=== PATIENT | female | born 1980 | race Caucasian/White ===

== ENCOUNTER 2016-12-14 09:04 | Day surgery (SDC) | payer OTHER ==
[2016-12-14] VITALS (12 sets, daily range): BP systolic 113–131; BP diastolic 62–94; PULSE 84–98; RESP 8–18; O2SAT 95–100
[~2016-12-14] VITALS: Ht 172.7 cm; Wt 99.8 kg
[~2016-12-14 09:04] MED LIST: ALBU8.5H2 IN; BECL8.7A6 INHALATION; BUTA1CAP41 PO; CYCL10TA9 PO; HYDR-4003 PO; HYDR25CA PO; LANS30CA14 PO; Lactated Ringer's 1,000 ML IV ONE; Levofloxacin 500 mg/100 mL D5W IV ONE; METH4TAB11 PO; METO-301 PO; MONT10TA23 PO; MULT-908 PO; ONDA8TAB7 PO; PHEN-684 PO; PRAM0.5T3 PO; SERT50TA9 PO; SUMA6PEN9 SQ; VIT1TABL83 PO; ZONI100C6 PO; [UNRECOGNIZED DRUG - CODE] IJ
[2016-12-14] MEDS ORDERED: Ondansetron 2 mg/mL 2 mL Inj ONE (09:05)
[2016-12-14] MEDS ORDERED: fentaNYL-PF 50 mCg/mL 2 mL Inj ONE (09:05)
[2016-12-14] MEDS ORDERED: Dexamethasone 4 mg/mL Inj ONE (09:05)
[2016-12-14] MEDS ORDERED: MetoCLOpramide 5 mg/mL 2 mL Inj ONE (09:05)
[2016-12-14] MEDS ORDERED: Propofol 10,000 mCg/mL 20 mL Inj ONE (09:05)
--- NOTE | 2016-12-14 10:22 | PCM.HPANE ---
Patient Data Surgeon Admitting Provider: Attending Provider:Gaviota Carias MD Primary Care Physician:Terry Dietz DO Other Provider:Pasquale Cole Anesthesia Reason for Visit Retained Foreign Body Of Bladder Ht/WT & BMI Height (Feet): 5 Height (Inches): 8.00 Weight (Kilograms): 99.8 Body Mass Index 33.00 Allergies Coded Allergies: latex (Verified Allergy, Severe, severe hives, 12/13/16) nadolol (Verified Allergy, Severe, SYNCOPE, 12/13/16) sumatriptan (Verified Allergy, Severe, HIVES, H/A, 12/13/16) ketorolac (Verified Allergy, Unknown, Hives, 12/13/16) trospium (Verified Allergy, Unknown, unknown, 12/13/16) Penicillins (Verified Adverse Reaction, Severe, Nausea,Vomiting,TREMORS, ) ampicillin (Verified Adverse Reaction, Severe, dizziness,disorientation, ) cephalexin (Verified Adverse Reaction, Severe, N&V, 12/13/16) metronidazole (Verified Adverse Reaction, Severe, N&V, 12/13/16) Uncoded Allergies: METAL,NICKEL (Adverse Reaction, Unknown, unknown, 12/13/16) Past Anesthesia History Anesthesia History: Denies:: Abnormal Airway, Anesthesia Reactions, Difficult Intubation, Fam Anesthesia Reaction, Fam Malignant Hypertherm, Malignant Hyperthermia Diabetes History Hx Diabetes?: No MRSA MRSA: No Medications Home Meds Incl Beta Johnie: No Reported Medications Beclomethasone Dipropionate (Qvar)8.7 Gm Aer.w.adap1 Puff INHALATION BID #8.7 GM 12/13/16 Vit B Comp/C/FA/Iron/Vit E (Vitamin B Complex Tablet)1 Each Tablet1 Each PO DAILY 12/13/16 Phenazopyridine (Pyridium)200 Mg Hazfbm774 Mg PO TID PRN For Pain Ref 0 12/13/16 Methylprednisolone (MethylprednisoLONE Dose Grzegorz)4 Mg Tab.ds.pk4 Mg PO UD #1 PKG Ref 0 Follow direction on package. 12/13/16 Hydrocodone-Acetaminophen 5-325 mg 1 Each Tablet1 Tablet PO Q6H PRN For Pain Ref 0 12/13/16 Multivits Min/Iron/FA/Herb#186 (Hair, Skin & Nails Caplet)1 Each Tablet1 Each PO DAILY 12/13/16 Butalbital/Acetamin/Caff 50-300-40 mg 1 Each Capsule1-2 Capsule PO Q4H PRN For Pain Ref 0 12/13/16 Ketorolac Tromethamine 15 Mg/1 Ml Cartridge1 Ml IJ Q6H PRN migraine 10/04/16 Sumatriptan Succinate 6 Mg/0.5 Ml Pen.injctr0.5 Ml SQ DIRECTED PRN migraine 10/04/16 Zonisamide 100 Mg [id number] Mg PO BID 10/04/16 Sertraline HCl (Sertraline)50 Mg Dxemzf42 Mg PO DAILY #30 02/28/16 Montelukast 10 Mg Vphxqh90 Mg PO DAILY #30 02/28/16 Ondansetron ODT (Zofran ODT)8 Mg Tablet8 Mg PO Q4H PRN For Nausea 02/28/16 Albuterol HFA (Proair HFA)8.5 Gm Hfa.aer.ad1 Puff IN PRN #8 07/13/[address] (Prevacid)30 Mg Lnodqyx70 Mg PO DAILY Ref 0 06/29/15 Metoclopramide (Reglan)10 Mg Rzzqmp15 Mg PO QID PRN For Nausea Ref 0 07/13/14 Hydroxyzine Pamoate (Vistaril)25 Mg Mdvjzvg17 Mg PO QID PRN For Itching Ref 0 07/13/14 Pramipexole Dihydrochloride (Mirapex)0.5 Mg Tablet1 Mg PO HS 02/08/14 Cyclobenzaprine 10 Mg Tablet5 Mg PO Q 8HRS PRN For Spasm Ref 0 02/08/14 Discontinued Reported Medications Prochlorperazine Maleate (Compazine)5 Mg Tablet5 Mg PO Q6H PRN For Nausea 11/12/16 Temazepam 30 Mg Cap30 Mg PO HS PRN For Insomnia 30 Days Ref 0 06/27/15 Rizatriptan (Maxalt)10 Mg Bptuxu12 Mg PO PRN For Headache 12/31/14 Topiramate (Topamax)100 Mg Cbljqt211 Mg PO QAM 30 Days Ref 0 07/13/14 Fluticasone Propionate (Flovent HFA 110 mcg)12 Gm Aer.w.adap2 Puffs IH BID PRN PRN #12 GM Ref 0 07/13/14 Sucralfate (Carafate)1 Gm Tablet1 Gm PO QID PRN For Epigastric Distress 30 Days Ref 0 02/08/14 Discontinued Scripts Tramadol 50 Mg Lovwks54 Mg PO Q4H PRN For Pain #12 TABLET Ref 0 Prov:Wyatt Harkins MD 02/28/16 History History of ENT Problems?: Yes HEENT History: Positive for:: Dysphagia Sinus Problem (HX CHRONIC SINUSITIS) Denies:: Abnormal Airway Difficult Intubation Hearing Problem Denture Type: None Teeth Condition: Within Normal Limits Hx of Heart Problems?: Yes Cardiovascular History: Positive for:: Edema Denies:: Cardiac Surgery Chest Pain Heart Murmur (ECHOI 11/2006 EF 60-65%) Hypertension Irregular Heartbeat Pacemaker Thrombophlebitis Other Cardiac History: HX OF MICROCYTIC ANEMIA/LYMPHADENOPATHY -REQ IRON & BLOOD TRANSFUSIONS-SEEN IN ONCOLOGY/HEMATOLOGY BY DR. EDUARDO S/P LYMPHADENECTOMY W/ INCONCLUSIVE RESULTS Hx of Respiratory Problem?: Yes Respiratory History: Positive for:: Asthma Dyspnea ([place] (POSS R/T ANXIETY)) Use of Inhalers / NEBS Denies:: COPD Chest Surgery Emphysema Pneumonia Tuberculosis Use of C-PAP Machine (SLEEP STUDY 09/2009 MARBELLA- SNORES) Hx Neurologic Problems?: Yes Neurological History: Positive for:: Headaches Denies:: CVA Other Neurological Pertinent: C/OF RLS Hx of GI Problems?: Yes Gastrointestinal History: Positive for:: Gastroesphageal Reflux Other GI Pertinent History: C/OF NAUSEA Hx of Problems?: Yes Genitourinary History: Positive for:: Kidney Stones (HX KIDNEY STONES) Urinary Tract Infection Other Pertinent History: S/P MULT. CYSTOS C/OF FREQUENCY,NOCTURIA Female Hx: Positive for:: Problems with Breasts? (C/OF RT BREAST PAINJ) Denies:: Currently Endometriosis Pelvic Inflammatory (HX VAGINITIS) Skin History: Denies:: History Skin Disorders? Pressure Ulcers Hx Musculoskeletal Problems?: Yes Musculoskeletal History: Positive for:: Fibromyalgia Systemic Lupus (ACCORDING TO PT) Denies:: Back Injury (C/OF BACK PAIN) Joint Replacement Musculoskeletal Trauma Hx of Psycho/Social Problems?: Yes Psycho Social History: Positive for:: Anxiety Hx Depression (PTSD) Denies:: Bipolar Disorder Hx Surgeries?: Yes (MULT. CYSTOS,MACROPLASTIQUE INJ.,LYMPHADENECTOMY,STAGE I- II INTERSTIM THERA) Hx Any Other Health Problems?: Yes Other History: Positive for:: Hospitalization Thyroid Disease (HX OF THYROID CYST) Denies:: Cancer Endocrine Disease History Blood Transfusions: Denies:: Blood Transfuse Reaction Blood Transfusions Hx Diabetes: No Hx Alcohol Use: Yes ("SOCIAL")Hx [facility] Smoking Status: Never Smoker Have You Smoked inLast 12 mo: No Stop/Bang S-Snoring: Do You Snore Loudly: Yes T-Tired: feel tired, fatigued: Yes O-Obsered: Observed not breath: No P-Blood Pressure: treated: No B- Body Mass Index > 35 kg/m2: No A- Age over 50: No N- Neck Large Circumference: Yes G- Gender Male: No MARBELLA Total Score: 3 Risk Assessment Category Category 1A: Patient has history of documented sleep apnea, and HAS NOT received any narcotic, sedative or anesthesia administration during this stay. Category 1B: Patient has history of documented sleep apnea, and HAS received any narcotic , sedative or anesthesia administration during this stay Category 2: Patient has SUSPECTED Obstructive Sleep Apnea, and HAS received any narcotic , sedative or anesthesia administration during this stay. Category 3: Patient has SUSPECTED Obstructive Sleep Apnea and HAS NOT received narcotic, sedative or anesthesia administration during this stay. Category 4: Outpatient in Procedural Areas with known sleep apnea or who screen positive for High Risk via the STOP/BANG questionnaire. Exam Exam Vital Signs Vital Signs Date Time Temp Pulse Resp B/P Pulse Ox O2 Delivery O2 Flow Rate FiO2 12/14/16 09:48 36.5 86 16 119/79 96 Room Air General Appearance: Alert, Oriented X3, Cooperative, No Acute Distress HEENT/AIRWAY: MP 2 Lungs: Clear to Auscultation, Normal Air Movement Heart: Exam Unremarkable, Regular Rate/Rhythm, No Murmurs/Rubs/Gallops Meds/Labs/Diagnostics Admission Meds Current Medications Lactated Ringer's (Lr) 1,000 ml @ 10 mls/hr Q24H ONCE IV Last administered on 12/14/16t 09:21; Start 12/14/16 at 00:52; Stop 12/15/16 at 00:51 Plan Impression Patient chart reviewed, patient interviewed and anesthestic plan with risks, benefits, and alternatives discussed, and informed consent obtained. ASA Physical Status: ASA3 Severe Disease Anesthetic Plan: GA Bene/Risks/Altern/Consents: Yes HP Complete Prior to Induction: Yes Pedrito Maynard MD Dec 14, 2016 09:58
[2016-12-14] MEDS ORDERED: Lactated Ringer's 1,000 ML IV SCH (10:23)
[2016-12-14] MEDS ORDERED: Lactated Ringer's 500 ML IV PRN (10:23)
[2016-12-14] MEDS ORDERED: Ondansetron 2 mg/mL 2 mL Inj IVPUSH PRN (10:25)
[2016-12-14] MEDS ORDERED: EPHEDrine Sulfate 50 mg/mL Inj IVPUSH PRN (10:25)
[2016-12-14] MEDS ORDERED: Dexamethasone 4 mg/mL Inj IVPUSH PRN (10:25)
[2016-12-14] MEDS ORDERED: Phenylephrine 10,000 mCg/mL Inj IVPUSH PRN (10:25)
[2016-12-14] MEDS ORDERED: HYDROmorphone 1 mg/mL Inj IVPUSH PRN (10:25)
[2016-12-14] MEDS ORDERED: Atropine 0.4 mg/mL Inj IVPUSH PRN (10:25)
[2016-12-14] MEDS ORDERED: Labetalol 5 mg/mL 4 mL Inj IV PRN (10:25)
[2016-12-14] MEDS ORDERED: MetoCLOpramide 5 mg/mL 2 mL Inj IVPUSH PRN (10:25)
[2016-12-14] MEDS ORDERED: Phenazopyridine 97.5 mg Tablet PO PRN (11:25)
[2016-12-14] MEDS ORDERED: HYDROcodone-APAP 5-325 mg Tablet PO PRN (11:25)
[2016-12-14] MEDS ORDERED: Ondansetron 8 mg ODT Tablet PO PRN (11:25)
[2016-12-14] MEDS: fentaNYL-PF 50 mCg/mL 2 mL Inj IVPUSH PRN ×2 (11:37→11:53)
--- NOTE | 2016-12-14 11:37 | PCM.ANEP1 ---
Post Anesthesia Phase 1 PACU Phase 1 Assessment Vital Signs Vital Signs Date Time Temp Pulse Resp B/P Pulse Ox O2 Delivery O2 Flow Rate FiO2 12/14/16 11:31 86 12 117/72 99 Room Air 12/14/16 11:25 89 12 117/68 99 Room Air 12/14/16 11:20 37.2 88 11 131/85 99 Room Air 12/14/16 09:48 36.5 86 16 119/79 96 Room Air Anesthetic Administered: GA Level of Alertness: Awake, talking CIFUENTES's with Equal Strength: Yes Pain: No Nausea or Vomiting: No Cardiovascular Function and Hy: Yes Oxygen Delivery: Room Air Lungs: Clear to Auscultation, Normal Air Movement Dermatome Level: Full Sensation Complications: No Pedrito Maynard MD Dec 14, 2016 11:37
--- NOTE | 2016-12-15 13:43 | OP ---
[address] [address] OPERATIVE REPORT PATIENT: AFSHAN RICHARDS : 1980 MR#: [id number] ADMIT: 12/14/2016 JOB ID: [id number] DATE OF SURGERY: 12/14/2016 PROCEDURE NAME: Cystoscopy with removal of foreign body. SURGEON: Gaviota Carias MD. ANESTHESIA: General. PREOPERATIVE DIAGNOSIS(ES): Bladder calculus adherent to foreign body. POSTOPERATIVE DIAGNOSIS(ES): Bladder calculus adherent to foreign body. INDICATIONS: This patient is a 36-year-old woman with a longstanding history of multiple medical problems, including urinary problems that have been treated in the past with Macroplastique x2 for her stress urinary incontinence; also, an InterStim, which has worked well for her urgency, frequency, urge incontinence. Presenting with increasing lower urinary tract symptoms. Evaluations initially showed a calcification felt to be a recently passed ureteral calculus. However, interval study at a later date revealed this calculus to still be present. At cystoscopy, it was found to be a calculus adherent to likely exposed material from her bulking injection and she was set up for cystoscopic removal of calculus. PROCEDURE IN DETAIL: After appropriate informed consent was obtained, patient brought to the operating room. She received IV antibiotics prior to onset of procedure. SCDs were placed. Adequate general anesthesia induced. She was carefully placed in the dorsal lithotomy position. All pressure points carefully padded. Cleaned, prepped, and draped in the usual sterile fashion. Rigid scope was introduced in the bladder. The calculus area itself was easily visible. There was a small area of evident exposed prosthetic material with calculus adherent to it. We needed the resectoscope using the loop without cutting function to remove the calculus. There was still some exposed material. We used a small swipe with cutting on to remove this. Hemostasis achieved with electrocautery. The patient tolerated the procedure well. Gutierrez catheter was placed. She was awakened and taken in stable condition to the postanesthesia care unit.
[2017-01-03] MEDS ORDERED: ROPI0.252 PO (14:54)
== END 2016-12-14 23:59 | disposition home or self-care (01) ==
LOC: SAS 09:04
PROVIDERS: ATTEND Urology
DX: N21.0 Calculus in bladder (principal); T19.1XXA Foreign body in bladder, initial encounter; N39.46 Mixed incontinence; R35.0 Frequency of micturition; R13.10 Dysphagia, unspecified; J45.909 Unspecified asthma, uncomplicated; K21.9 Gastro-esophageal reflux disease without esophagitis; M79.7 Fibromyalgia; F41.9 Anxiety disorder, unspecified; F43.10 Post-traumatic stress disorder, unspecified; F12.90 Cannabis use, unspecified, uncomplicated; Z96.0 Presence of urogenital implants; Z87.442 Personal history of urinary calculi
CPT/HCPCS: 52310; J1100; J1885; J2405; J2765; J3010; J7120

== ENCOUNTER 2016-12-14 18:57 | Emergency (ER) | payer OTHER ==
[~2016-12-14] VITALS: Ht 172.7 cm; Wt 100.0 kg
[~2016-12-14 18:57] MED LIST changes: -Lactated Ringer's 1,000 ML IV ONE; -Levofloxacin 500 mg/100 mL D5W IV ONE
[2016-12-14 19:00] VITALS: BP 134/92; PULSE 103; RESP 16; O2SAT 96
[2016-12-14] MEDS ORDERED: 0.9% Sodium Chloride 1,000 ML IV ONE (19:45)
--- NOTE | 2016-12-14 19:55 | ED.REPORT ---
HPI- Female Date of Service Dec 14, 2016 ED Provider: Jacky Goode DO Joellen Russell is a 36-year-old woman who underwent urinary tract operation earlier this afternoon for 8 mm stone removal and "scraping scar tissue from my bladder " she had a urinary catheter placed following surgery and was given the instructions that if there was leakage from her urethra around her Santacruz tube for her to come to the emergency department. She noticed this after returning home, has gone through 2 sets of underwear and pants, she has not worn a pad. She denies any worsening pain since her operation. She is on Pyridium and is unable to tell if her urine is bloody or orange. She says she has felt a little warm, no chest pain, no shortness of breath, no lightheadedness or dizziness, it is difficult for her to ambulate secondary to pain in her pelvis. She is not passing any gas or had a bowel movement. Nursing Notes Stated Complaint: POST OP ISSUE Chief Complaint: Female Abdominal Pain Nursing Notes Reviewed: Yes Allergies: Coded Allergies: latex (Verified Allergy, Severe, severe hives, 12/14/16) nadolol (Verified Allergy, Severe, SYNCOPE, 12/14/16) trospium (Verified Allergy, Unknown, unknown, 12/14/16) Penicillins (Verified Adverse Reaction, Severe, Nausea,Vomiting,TREMORS, ) ampicillin (Verified Adverse Reaction, Severe, dizziness,disorientation, ) cephalexin (Verified Adverse Reaction, Severe, N&V, 12/14/16) metronidazole (Verified Adverse Reaction, Severe, N&V, 12/14/16) Uncoded Allergies: METAL,NICKEL (Adverse Reaction, Unknown, unknown, 12/13/16) Scheduled Albuterol HFA (Proair HFA) 8.5 Gm Hfa.aer.ad 1 PUFF IN PRN Beclomethasone Dipropionate (Qvar) 8.7 Gm Aer.w.adap 1 PUFF INHALATION BID Lansoprazole DR (Prevacid) 30 Mg Capsule 30 MG PO DAILY Methylprednisolone (MethylprednisoLONE Dose Grzegorz) 4 Mg Tab.ds.pk 4 MG PO UD Follow direction on package. Montelukast (Montelukast) 10 Mg Tablet 10 MG PO DAILY Multivits Min/Iron/FA/Herb#186 (Hair, Skin & Nails Caplet) 1 Each Tablet 1 EACH PO DAILY Pramipexole Dihydrochloride (Mirapex) 0.5 Mg Tablet 1 MG PO HS Sertraline HCl (Sertraline) 50 Mg Tablet 50 MG PO DAILY Vit B Comp/C/FA/Iron/Vit E (Vitamin B Complex Tablet) 1 Each Tablet 1 EACH PO DAILY Zonisamide (Zonisamide) 100 Mg Capsule 100 MG PO BID Scheduled PRN Butalbital/Acetamin/Caff 50-300-40 mg (Butalbital/Acetamin/Caff 50-300-40 mg) 1 Each Capsule 1-2 CAPSULE PO Q4H PRN PRN For Pain Cyclobenzaprine (Cyclobenzaprine) 10 Mg Tablet 5 MG PO Q 8HRS PRN PRN For Spasm Hydrocodone-Acetaminophen 5-325 mg (Hydrocodone-Acetaminophen 5-325 mg) 1 Each Tablet 1 TABLET PO Q6H PRN PRN For Pain Hydroxyzine Pamoate (Vistaril) 25 Mg Capsule 25 MG PO QID PRN PRN For Itching Ketorolac Tromethamine (Ketorolac Tromethamine) 15 Mg/1 Ml Cartridge 1 ML IJ Q6H PRN PRN migraine Metoclopramide (Reglan) 10 Mg Tablet 10 MG PO QID PRN PRN For Nausea Ondansetron ODT (Zofran ODT) 8 Mg Tablet 8 MG PO Q4H PRN PRN For Nausea Phenazopyridine (Pyridium) 200 Mg Tablet 200 MG PO TID PRN PRN For Pain Sumatriptan Succinate (Sumatriptan Succinate) 6 Mg/0.5 Ml Pen.injctr 0.5 ML SQ DIRECTED PRN PRN migraine General Time Seen by MD: 19:11 Chief Complaint Other (Leaking santacruz catheter.) Hx Obtained From: Patient Sudden in Onset?: Yes Similar Sx Previous: No Past Medical History Past Medical History GERD Migraines Kidney stones Ovarian cyst Iron and blood transfusions "Lupus" Reports: Asthma Past Surgical History lymphadenectomy: R axilla and L groin with inconclusive results Cystoscopy with removal of foreign body 12/14/2016 Family History Reviewed, no relevant findings Smoking History Never Smoker Social History Alcohol Use: "Social" Drug Use: THC (medical, for migraines) 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 Physical Exam General: Sitting in wheelchair, no apparent distress. HEENT: Normocephalic, atraumatic, EOMI grossly, Cardiovascular: Regular rate and rhythm, no clicks murmurs rubs, peripheral pulses 2/4 equal bilaterally Pulmonary: Clear to auscultation bilaterally, no W/R/R. Abdominal: Soft to palpation, Negative rebound. : Santacruz catheter in place, draining orange fluid. No suprapubic tenderness, no distention appreciated on palpation Extremities: No edema appreciated. No tenderness, asymmetry. There is a Santacruz catheter bag secured to right lower extremity Neuro: Neurologically grossly intact, strength is equal bilaterally upper and lower extremities. MSK: Gait antalgic, able to move extremities on their own volition, strength 5 out of 5 equal bilaterally to upper and lower extremities. Initial Vital Signs Vital Signs (First) Date Time Temp Pulse Resp B/P Pulse Ox O2 Delivery O2 Flow Rate FiO2 12/14/16 19:00 36.1 103 16 134/92 96 Room Air Initial VS: Reviewed Interpretation & Diagnostics Lab Results Interpretation Test 12/14/16 20:15 Hold Purple Top Tube Received (Received) Hold Blue Top Tube Received (Received) Hold [place] Top Tube Received (Received) Hold [place] Top Tube Received (Received) US Focused non-OB Pelvis Unable to appreciate bladder on bedside ultrasound. Exam Performed by: ED physician, ED resident Exam Interpreted by: ED physician, ED resident Re-Eval/Medical Decision Med Decision/Clinical Course Patient was evaluated, did not appear to have a distended bladder. Patient was given IV fluids as well as oral fluids, reevaluated sometime later and found that she indeed has a patent Santacruz catheter. She ambulated around the department, and noticed that she continue to have minor leakage that was able to be wiped up with a paper towel. Shared decision making was performed with the patient regarding replacement of her current Santacruz catheter with one of the same size, most likely causing similar problems. She is also given the option of having a larger one placed which may distend the urethra, causing same problems on the road or worsening in the future. Ultimately patient states that she was content with waiting until her appointment on Saturday to have her Santacruz catheter removed, and agreed to wear panty liners, incontinence pad, and other feminine products. She was given warning that moisture to the area can put her at risk of rash, or yeast infections, and again emphasized to use proper feminine hygiene. Red flag symptoms were discussed with strict return protocol, patient stated understanding and agreement. Counseled Regarding: Diagnosis, Need for follow-up, When/why to return to ED Discharge & Departure Impression: Primary Impression: Leakage from urinary catheter Encounter type: initial encounter Qualified Code: T83.038A - Leakage of other urinary catheter, initial encounter Disposition: Home Discharge Condition All VS Reviewed: Yes Condition: Stable Patient Instructions: How to Care for Your Santacruz Catheter (DC) Additional Instructions: Thank you for entrusting us with your care. Today we evaluated your urinary catheter, found that it was not clogged. There is residual leakage from your urethra, however as we discussed we do not feel that replacing the catheter with the same size would be of benefit, and to move into a larger size may distend your urethra and you may have the same problem or even worse further in the future. We recommend that you wear incontinence pads, keep the areas dry as possible, watch out for signs of a yeast infection, use feminine care appropriately. If you develop a fever, chills, start to have blood leaking from around your Santacruz catheter or becomes foul-smelling with purulent discharge, please return to the emergency department. Please follow-up with urology at your scheduled appointment on Saturday to have Santacruz catheter removed. Referrals: Terry Dietz DO (PCP) Attending Statement I agree with the note. I performed a physical examination today history. I think the Santacruz is draining spontaneously. There is a small amount of leakage which. This does not seem to be a problem. I recommended she talks over the urologist tomorrow. copies to: Terry Dietz Noah M DO Dec 14, 2016 19:55 Jacky Goode DO Dec 15, 2016 00:57
[2016-12-14] MEDS ORDERED: Ondansetron 2 mg/mL 2 mL Inj IVPUSH PRN (20:30)
[2016-12-14 22:44] VITALS: BP 142/99; PULSE 91; RESP 16; O2SAT 96
[2016-12-14 22:46] VITALS: BP 134/92; PULSE 103; RESP 16; O2SAT 96
[2017-01-03] MEDS ORDERED: ROPI0.252 PO (14:54)
== END 2016-12-14 22:45 | disposition home or self-care (01) ==
LOC: SED 18:57
DX: T83.031A Leakage of indwelling urethral catheter, initial encounter (principal); Y84.6 Urinary catheterization as the cause of abnormal reaction of the patient, or of later complication, without mention of misadventure at the time of the procedure; Y93.89 Activity, other specified; Y92.89 Other specified places as the place of occurrence of the external cause; Y99.8 Other external cause status; J45.909 Unspecified asthma, uncomplicated; K21.9 Gastro-esophageal reflux disease without esophagitis; Z98.890 Other specified postprocedural states; Z88.0 Allergy status to penicillin; Z88.1 Allergy status to other antibiotic agents; Z88.8 Allergy status to other drugs, medicaments and biological substances; Z91.040 Latex allergy status
CPT/HCPCS: 96361; 96374; 99284; J2405; J7030

== ENCOUNTER 2016-12-17 15:38 | Emergency (ER) | payer OTHER ==
[~2016-12-17] VITALS: Ht 172.7 cm; Wt 110.0 kg
[2016-12-17 15:42] VITALS: BP 120/80; PULSE 104; RESP 16; O2SAT 92
[2016-12-17 16:10] LABS: APPEARANCE,URINE HAZY (CLEAR,HAZY); COLOR,URINE DARK YELLOW (YELLOW); OCCULT BLOOD,URINE LARGE (NEGATIVE); UROBILINOGEN,URINE NORMAL (NORMAL)
--- NOTE | 2016-12-17 18:24 | ED.REPORT ---
HPI- Female Date of Service Dec 17, 2016 ED Provider: Julito Gilbert DO A 36 year old female with a medical history including Lupus, migraines, nephrolithiasis, and ovarian cyst s/p recent cystoscopy with removal of foreign body from bladder (12/14/16) presents to the ED with hematuria in her Gutierrez catheter onset today. Associated symptoms include dysuria, low-grade fever ( 100.2 at home), and urine leaking around the catheter. The patient denies other symptoms. She was seen in the ED the evening of her recent surgery with leaking around her Gutierrez catheter. The catheter is scheduled to come out tomorrow. Nursing Notes Stated Complaint: BLOOD IN URINE Chief Complaint: Female Abdominal Pain Nursing Notes Reviewed: Yes Allergies: Coded Allergies: latex (Verified Allergy, Severe, severe hives, 12/14/16) nadolol (Verified Allergy, Severe, SYNCOPE, 12/14/16) trospium (Verified Allergy, Unknown, unknown, 12/14/16) Penicillins (Verified Adverse Reaction, Severe, Nausea,Vomiting,TREMORS, ) ampicillin (Verified Adverse Reaction, Severe, dizziness,disorientation, ) cephalexin (Verified Adverse Reaction, Severe, N&V, 12/14/16) metronidazole (Verified Adverse Reaction, Severe, N&V, 12/14/16) Uncoded Allergies: METAL,NICKEL (Adverse Reaction, Unknown, unknown, 12/13/16) Scheduled Albuterol HFA (Proair HFA) 8.5 Gm Hfa.aer.ad 1 PUFF IN PRN Beclomethasone Dipropionate (Qvar) 8.7 Gm Aer.w.adap 1 PUFF INHALATION BID Lansoprazole DR (Prevacid) 30 Mg Capsule 30 MG PO DAILY Methylprednisolone (MethylprednisoLONE Dose Grzegorz) 4 Mg Tab.ds.pk 4 MG PO UD Follow direction on package. Montelukast (Montelukast) 10 Mg Tablet 10 MG PO DAILY Multivits Min/Iron/FA/Herb#186 (Hair, Skin & Nails Caplet) 1 Each Tablet 1 EACH PO DAILY Pramipexole Dihydrochloride (Mirapex) 0.5 Mg Tablet 1 MG PO HS Sertraline HCl (Sertraline) 50 Mg Tablet 50 MG PO DAILY Vit B Comp/C/FA/Iron/Vit E (Vitamin B Complex Tablet) 1 Each Tablet 1 EACH PO DAILY Zonisamide (Zonisamide) 100 Mg Capsule 100 MG PO BID Scheduled PRN Butalbital/Acetamin/Caff 50-300-40 mg (Butalbital/Acetamin/Caff 50-300-40 mg) 1 Each Capsule 1-2 CAPSULE PO Q4H PRN PRN For Pain Cyclobenzaprine (Cyclobenzaprine) 10 Mg Tablet 5 MG PO Q 8HRS PRN PRN For Spasm Hydrocodone-Acetaminophen 5-325 mg (Hydrocodone-Acetaminophen 5-325 mg) 1 Each Tablet 1 TABLET PO Q6H PRN PRN For Pain Hydroxyzine Pamoate (Vistaril) 25 Mg Capsule 25 MG PO QID PRN PRN For Itching Ketorolac Tromethamine (Ketorolac Tromethamine) 15 Mg/1 Ml Cartridge 1 ML IJ Q6H PRN PRN migraine Metoclopramide (Reglan) 10 Mg Tablet 10 MG PO QID PRN PRN For Nausea Ondansetron ODT (Zofran ODT) 8 Mg Tablet 8 MG PO Q4H PRN PRN For Nausea Phenazopyridine (Pyridium) 200 Mg Tablet 200 MG PO TID PRN PRN For Pain Sumatriptan Succinate (Sumatriptan Succinate) 6 Mg/0.5 Ml Pen.injctr 0.5 ML SQ DIRECTED PRN PRN migraine General Time Seen by MD: 18:06 Chief Complaint Blood in urine Hx Obtained From: Patient Arrived By: Walk-in Sudden in Onset?: Yes Onset Occurred: 5 - 8 hours ago Symptom Duration: Since onset Severity: Current: No pain currently Severity: Maximum: No pain Pertinent Negative: Relieved by nothing Related History: Reports: Abdominal surgery Recent Healthcare: Recent doctor visit, Previous surgery Past Medical History Past Medical History GERD Migraines Kidney stones Ovarian cyst Iron and blood transfusions "Lupus" Reports: Asthma Past Surgical History lymphadenectomy: R axilla and L groin with inconclusive results Cystoscopy with removal of foreign body 12/14/2016 Family History Reviewed, no relevant findings Smoking History Never Smoker Social History Alcohol Use: "Social" Drug Use: THC 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 Respiratory: Denies: Non-productive cough, Shortness of breath Physical Exam Initial Vital Signs Vital Signs (First) Date Time Temp Pulse Resp B/P Pulse Ox O2 Delivery O2 Flow Rate FiO2 12/17/16 15:42 36.4 104 16 120/80 92 Room Air Initial VS: Reviewed Head / Eyes: Atraumatic, Normocephalic ENT: Conjunctiva normal, No scleral icterus Neck: Supple, Full range of motion Skin: Warm, Dry, No cyanosis Neurologic: Alert, Oriented, Nonfocal Psychiatric: Mood/affect normal, Behavior normal, Normal thought content Female Genitourinary: Technology Adoption Manager present, Atraumatic Gutierrez catheter in place Yellow urine present Abdomen: Soft, No guarding, No rebound Tenderness/Guarding/Rebound: Positive: Tender suprapubic (Mild) Interpretation & Diagnostics Lab Results Interpretation Test 12/17/16 15:54 Urine Color Dark yellow (YELLOW) Urine Appearance Hazy (CLEAR,HAZY) Urine pH 7.0 (5.0-8.0) Urine Specific [place] 1.016 (1.003-1.035) Urine Protein 30mg/dL (NEG,TRACE) Urine Glucose (UA) Negativemg/dL (NEGATIVE) Urine Ketones Negativemg/dL (NEGATIVE) Urine Occult Blood Large (NEGATIVE) Urine Nitrite Negative (NEGATIVE) Urine Bilirubin Negative (NEGATIVE) Urine Urobilinogen Normalmg/dL (NORMAL) Urine Leukocyte Esterase Negative (NEGATIVE) Urine RBC >50/hpf (0-2) Urine WBC 0-5/hpf (0-5) Urine Epithelial Cells Few/hpf (NONE-MOD) Urine Crystals None seen (NONE SEEN) Urine Bacteria Few/hpf (NONE-FEW) Urine Hyaline Casts None/lpf (NONE) Urine Granular Casts None seen (NONE SEEN) Urine Waxy Casts None seen (NONE SEEN) Urine Red Blood Cell Casts None seen (NONE SEEN) Urine White Blood Cell Casts None seen (NONE SEEN) Urine Mucus None seen (None Seen) Urine Trichomonas None seen (NONE SEEN) Urine Yeast None (NONE SEEN) Urinalysis Comment None Urine Culture Reflexed Not indicated Re-Eval/Medical Decision Source of Hx: Old records Re-Evaluation/Progress : Time of Eval: 18:31 Patient Status: Condition improved Re-Evaluation/Progress Note: Discussed with patient lab results, diagnosis, and plan for discharge. Follow-up and return to the ER instructions given. Patient agrees with plan for care and all questions were addressed. Counseled Regarding: Diagnosis, Lab results, Need for follow-up, When/why to return to ED Discharge & Departure Impression: Primary Impression: Leakage from urinary catheter Encounter type: subsequent encounter Qualified Code: T83.038D - Leakage of other urinary catheter, subsequent encounter Disposition: Home Discharge Condition All VS Reviewed: Yes Condition: Improved Additional Instructions: Call Dr. Carias in the morning for repeat evaluation and discussion about your ongoing pain meds. Your pain will most likely be better once the catheter is removed, I suggest that you try your normal dose of pain medication overnight. Treatment ER for high fever, vomiting, inability to urinate or other concerns. Referrals: Terry Dietz DO (PCP) Gaviota Carias MD Attestation Portions of this note were transcribed by Breanna Bermudez. I, Dr. Gilbert, personally performed the history, physical exam, and medical decision-making; I reviewed and confirmed the accuracy of the information in the transcribed note. Signed by: Fahad Hidalgo, 12/17/2016, 18:55 copies to: Gaviota Carias MD; Terry Dietz Timothy S DO Dec 17, 2016 18:24 BREANNA BERMUDEZ Dec 17, 2016 18:34
[2016-12-17 18:52] VITALS: BP 123/74; PULSE 90; O2SAT 100
[2017-01-03] MEDS ORDERED: ROPI0.252 PO (14:54)
== END 2016-12-17 18:53 | disposition home or self-care (01) ==
LOC: SED 15:38
DX: T83.038A Leakage of other urinary catheter, initial encounter (principal); Y84.6 Urinary catheterization as the cause of abnormal reaction of the patient, or of later complication, without mention of misadventure at the time of the procedure; Y93.89 Activity, other specified; Y99.8 Other external cause status; Y92.9 Unspecified place or not applicable; M32.9 Systemic lupus erythematosus, unspecified; K21.9 Gastro-esophageal reflux disease without esophagitis; J45.909 Unspecified asthma, uncomplicated; F12.10 Cannabis abuse, uncomplicated; Z98.890 Other specified postprocedural states; Z79.51 Long term (current) use of inhaled steroids; Z79.52 Long term (current) use of systemic steroids; Z88.1 Allergy status to other antibiotic agents; Z88.8 Allergy status to other drugs, medicaments and biological substances; Z88.0 Allergy status to penicillin

== ENCOUNTER 2017-02-21 19:57 | Emergency (ER) | payer OTHER ==
[~2017-02-21] VITALS: Ht 172.7 cm; Wt 100.0 kg
[~2017-02-21 19:57] MED LIST changes: +ROPI0.252 PO
[2017-02-21 20:27] VITALS: BP 119/84; PULSE 99; RESP 18; O2SAT 100
--- NOTE | 2017-02-21 21:24 | ED.REPORT ---
HPI-Extremity Problem Upper Date of Service Feb 21, 2017 ED Provider: Dr. Quinteros 36 y/o female with a hx of Lupus, migraines, nephrolithiasis presents to the ED complaining of left arm swelling, onset today. The pt had a CT- aortic arch- angiogram with IV contrast earlier today, which got infiltrated during the procedure. Since then, the pt has been experiencing worsening swelling, left arm pain and discoloration. She is unable to straighten her arm due to the pain. The pt reports feeling hot earlier but denies fever. Her last menstrual period was two weeks ago. The pt took an Ibuprofen and a Tylenol for pain which has not helped. Nursing Notes Stated Complaint: SWOLLEN LEFT ARM FROM IV Chief Complaint: Extremity Trauma Nursing Notes Reviewed: Yes Allergies: Coded Allergies: latex (Verified Allergy, Severe, severe hives, 12/14/16) nadolol (Verified Allergy, Severe, SYNCOPE, 12/14/16) bupropion (Verified Allergy, Intermediate, Anger psychosis, 02/21/17) trospium (Verified Allergy, Unknown, unknown, 12/14/16) Penicillins (Verified Adverse Reaction, Severe, Nausea,Vomiting,TREMORS, ) ampicillin (Verified Adverse Reaction, Severe, dizziness,disorientation, ) cephalexin (Verified Adverse Reaction, Severe, N&V, 12/14/16) metronidazole (Verified Adverse Reaction, Severe, N&V, 12/14/16) Uncoded Allergies: METAL,NICKEL (Adverse Reaction, Unknown, unknown, 12/13/16) Scheduled Albuterol HFA (Proair HFA) 8.5 Gm Hfa.aer.ad 1 PUFF IN PRN Beclomethasone Dipropionate (Qvar) 8.7 Gm Aer.w.adap 1 PUFF INHALATION BID Lansoprazole DR (Prevacid) 30 Mg Capsule 30 MG PO DAILY Methylprednisolone (MethylprednisoLONE Dose Grzegorz) 4 Mg Tab.ds.pk 4 MG PO UD Follow direction on package. Montelukast (Montelukast) 10 Mg Tablet 10 MG PO DAILY Multivits Min/Iron/FA/Herb#186 (Hair, Skin & Nails Caplet) 1 Each Tablet 1 EACH PO DAILY Pramipexole Dihydrochloride (Mirapex) 0.5 Mg Tablet 1 MG PO HS Ropinirole (Ropinirole) 0.25 Mg Tablet 4 TAB PO 1-3h Sertraline HCl (Sertraline) 50 Mg Tablet 50 MG PO DAILY Vit B Comp/C/FA/Iron/Vit E (Vitamin B Complex Tablet) 1 Each Tablet 1 EACH PO DAILY Zonisamide (Zonisamide) 100 Mg Capsule 100 MG PO BID Scheduled PRN Butalbital/Acetamin/Caff 50-300-40 mg (Butalbital/Acetamin/Caff 50-300-40 mg) 1 Each Capsule 1-2 CAPSULE PO Q4H PRN PRN For Pain Cyclobenzaprine (Cyclobenzaprine) 10 Mg Tablet 5 MG PO Q 8HRS PRN PRN For Spasm Hydrocodone-Acetaminophen 5-325 mg (Hydrocodone-Acetaminophen 5-325 mg) 1 Each Tablet 1 TABLET PO Q6H PRN PRN For Pain Hydroxyzine Pamoate (Vistaril) 25 Mg Capsule 25 MG PO QID PRN PRN For Itching Ketorolac Tromethamine (Ketorolac Tromethamine) 15 Mg/1 Ml Cartridge 1 ML IJ Q6H PRN PRN migraine Metoclopramide (Reglan) 10 Mg Tablet 10 MG PO QID PRN PRN For Nausea Ondansetron ODT (Zofran ODT) 8 Mg Tablet 8 MG PO Q4H PRN PRN For Nausea Phenazopyridine (Pyridium) 200 Mg Tablet 200 MG PO TID PRN PRN For Pain Sumatriptan Succinate (Sumatriptan Succinate) 6 Mg/0.5 Ml Pen.injctr 0.5 ML SQ DIRECTED PRN PRN migraine General Time Seen by MD: 21:24 Chief Complaint Other (left arm swelling) Hx Obtained From: Patient Arrived By: Walk-in Onset Occurred: 1 - 4 hours ago Symptom Duration: Since onset Location: : Arm left Quality: Painful Severity: Current: Moderate Severity: Maximum: Moderate Recent Healthcare: Recent doctor visit Similar Sx Previous: No Past Medical History Past Medical History GERD Migraines Kidney stones Ovarian cyst Iron and blood transfusions "Lupus" Reports: Asthma Past Surgical History lymphadenectomy: R axilla and L groin with inconclusive results Cystoscopy with removal of foreign body 12/14/2016 Family History Reviewed, no relevant findings Smoking History Never Smoker Social History Alcohol Use: "Social" Drug Use: THC 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 Physical Exam Initial Vital Signs Vital Signs (First) Date Time Temp Pulse Resp B/P Pulse Ox O2 Delivery O2 Flow Rate FiO2 02/21/17 20:27 37.1 99 18 119/84 100 Room Air Initial VS: Reviewed, Vital signs normal Head / Eyes: Atraumatic, Normocephalic Neck: Supple, Non-tender, Full range of motion Respiratory: Breath sounds normal, Clear to auscultation, No respiratory distress Cardiovascular: Regular rate & rhythm, Heart sounds normal, Intact distal pulses Abdomen / GI: Soft, Non-tender Lower Extremities: Vascular intact, Neuro intact, No swelling, No tenderness Neurologic: Alert, Oriented, Nonfocal General/Constitutional: Awake, Alert, Cooperative Upper Extremity / MS: Atraumatic, No deformity, Neurologic intact, Vascular intact Left Upper Arm: Positive: Swelling present... (Moderate) Left Forearm: Positive: Swelling present... (Moderate) Area of pallor extending from mid forearm to 2/3 up the biceps on the flexor aspect of the left arm. Pulses and sensation intact in the left arm. Tissues are soft and warm, not hot Re-Eval/Medical Decision Med Decision/Clinical Course CT contrast extravasation in the left upper extremity. Has good active range of motion, area of pallorous discoloration has not changed during her stay in the emergency department. The patient appears comfortable. Do not believe this is a compartment syndrome, does not have necrotic tissue that I can see. distal neurovascular is intact. Re-Evaluation/Progress : Time of Eval: 22:02 Patient Status: Condition unchanged Re-Evaluation/Progress Note: Rechecked pt. Discussed diagnosis and plan to discharge. Pt understands and agrees with the plan. F/U instructions and RTER warning given. All questions addressed. Consultation : Call Returned at: 21:45 Note: Consulted radiologist who recommends ice and hot compressions, elevation and follow up with interventional radiologist tomorrow. Counseled Regarding: Diagnosis, Need for follow-up, When/why to return to ED Discharge & Departure Impression: Primary Impression: Contrast media adverse reaction Encounter type: initial encounter Qualified Code: T50.8X5A - Adverse effect of diagnostic agents, initial encounter Disposition: Home Discharge Condition All VS Reviewed: Yes Condition: Stable Additional Instructions: You seem to have had an inflammatory response to the contrast. Alternate ice and heat compressions and elevate your arm to above the level of the heart. Take Percocet every 4 hours for pain if needed. Continue taking 600mg of Ibuprofen 3 times a day. Please follow up with imaging tomorrow and ask for interventional radiologist at the registration desk. Return to ED if pain increased dramatically. Referrals: Terry Dietz DO (PCP) Scribe Attestation Portions of this note were transcribed by Urszula Vasques. I, , personally performed the history, physical exam and medical decision- making;I reviewed and confirmed the accuracy of the information in the transcribed note. Signed by Fahad Casas. 02/21/17 22:32 copies to: Terry Dietz Donald L MD Feb 21, 2017 21:24 Urszula Vasques Feb 21, 2017 22:05
[2017-02-21] MEDS ORDERED: _oxyCODONE/APAP 5-325 mg Tablet PO PRN (21:55)
[2017-02-21 22:12] VITALS: PULSE 98; RESP 16; O2SAT 100
== END 2017-02-21 22:13 | disposition home or self-care (01) ==
LOC: SED 19:57
DX: M79.89 Other specified soft tissue disorders (principal); T50.8X5A Adverse effect of diagnostic agents, initial encounter; Y84.8 Other medical procedures as the cause of abnormal reaction of the patient, or of later complication, without mention of misadventure at the time of the procedure; Y93.89 Activity, other specified; Y92.238 Other place in hospital as the place of occurrence of the external cause; Y99.8 Other external cause status; K21.9 Gastro-esophageal reflux disease without esophagitis; M32.9 Systemic lupus erythematosus, unspecified; Z79.899 Other long term (current) drug therapy; Z88.0 Allergy status to penicillin; Z88.1 Allergy status to other antibiotic agents; Z88.8 Allergy status to other drugs, medicaments and biological substances; Z91.040 Latex allergy status

== ENCOUNTER 2017-02-25 00:33 | Day surgery (SDC) | payer OTHER | END 2017-02-25 23:59 | disposition home or self-care (01) | LOC: SOUO 00:33 | PROVIDERS: ATTEND Radiology Vascular & Interventional Radiology | DX: Z09 Encounter for follow-up examination after completed treatment for conditions other than malignant neoplasm (principal) ==